=== PATIENT | female | born 1935 | race Caucasian/White ===

== ENCOUNTER 2017-10-10 09:21 | Outpatient (CLI) | payer MEDICARE ==
--- NOTE | 2017-10-10 11:51 | MRI ---
MRI LUMBAR SPINE WITHOUT CONTRAST: HISTORY: Spinal stenosis of the lumbar region. COMPARISON: 06/01/2011 TECHNIQUE: Multiplanar, multisequence MR images were obtained of the lumbar spine without contrast. FINDINGS: There is stable grade 1 anterolisthesis of L4 on L5. The vertebral bodies demonstrate normal height without fracture or subluxation. The conus medullaris terminates normally at T12. There appears to be a small cyst in the left kidney. The other prevertebral and paraspinal soft tissues are unremarka ble. T12-L1: Unremarkable. L1-L2: Unremarkable. L2-L3: Unremarkable. L3-L4: A small generalized concentric disk bulge is seen. Mild bilateral posterior facet arthrosis. Mild central canal stenosis. Mild bilateral neural foraminal stenosis. L4-L5: A moderate generalized concentric disk bulge is seen. Moderate bilateral posterior facet art hrosis. Mild central canal stenosis. Moderate bilateral neural foraminal stenosis. L5-S1: A small disk osteophyte complex is seen. No posterior facet arthrosis. No central canal dallin nosis. Moderate left neural foraminal stenosis. No right neural foraminal stenosis. IMPRESSION: Degenerative changes of the lumbar spine, as above. POS: [facility]
== END 2017-10-10 09:22 | disposition home or self-care (01) ==
LOC: SCSMRI 09:21
PROVIDERS: ATTEND Anesthesiology Pain Medicine
DX: M48.061 Spinal stenosis, lumbar region without neurogenic claudication (principal); M47.896 Other spondylosis, lumbar region
CPT/HCPCS: 72148

== ENCOUNTER → 2023-06-09 | Day surgery (SDC) | payer MEDICARE ==
[~2023-06-09] MED LIST: ROMOSOZUMAB-AQQG 210 MG/2.34 ML SYR SQ SCH
[2023-06-09 11:21] VITALS: BP 152/65; TEMP 98.8
== END ==
LOC: ONC/OP 10:52
PROVIDERS: ATTEND Internal Medicine
DX: M80.00XA Age-related osteoporosis with current pathological fracture, unspecified site, initial encounter for fracture (principal)
CPT/HCPCS: 96372; J3111

== ENCOUNTER 2023-07-07 10:50 | Day surgery (SDC) | payer MEDICARE ==
[2023-07-07 12:12] VITALS: BP 108/52; TEMP 98.4
== END 2023-07-07 12:00 | disposition home or self-care (01) ==
LOC: ONC/OP 10:50
PROVIDERS: ATTEND Internal Medicine
DX: M81.0 Age-related osteoporosis without current pathological fracture (principal)
CPT/HCPCS: 96372; J3111

== ENCOUNTER 2023-08-04 11:20 | Day surgery (SDC) | payer MEDICARE ==
[2023-08-04 11:33] VITALS: BP 124/60; TEMP 97.9
== END 2023-08-04 11:40 | disposition home or self-care (01) ==
LOC: ONC/OP 11:20
PROVIDERS: ATTEND Internal Medicine
DX: M81.0 Age-related osteoporosis without current pathological fracture (principal)
CPT/HCPCS: 96372; J3111

== ENCOUNTER 2023-09-01 09:58 | Day surgery (SDC) | payer MEDICARE ==
[2023-09-01 10:19] VITALS: BP 145/63; TEMP 97.6
[2023-09-01] MEDS ORDERED: ROMOSOZUMAB-AQQG 210 MG/2.34 ML SYR SQ SCH (11:00)
== END 2023-09-01 10:34 | disposition home or self-care (01) ==
LOC: ONC/OP 09:58
PROVIDERS: ATTEND Internal Medicine
DX: M81.0 Age-related osteoporosis without current pathological fracture (principal)
CPT/HCPCS: 96372; J3111

== ENCOUNTER 2023-09-29 10:08 | Day surgery (SDC) | payer MEDICARE ==
[2023-09-29] MEDS: ROMOSOZUMAB-AQQG 210 MG/2.34 ML SYR SQ SCH (10:42)
[2023-09-29 11:17] VITALS: BP 143/66; TEMP 98.3
== END 2023-09-29 11:19 | disposition home or self-care (01) ==
LOC: ONC/OP 10:08
PROVIDERS: ATTEND Internal Medicine
DX: M81.0 Age-related osteoporosis without current pathological fracture (principal); Z88.8 Allergy status to other drugs, medicaments and biological substances
CPT/HCPCS: 96372; J3111

== ENCOUNTER 2024-01-22 09:59 | Day surgery (SDC) | payer MEDICARE ==
[2024-01-22] MEDS: ROMOSOZUMAB-AQQG 210 MG/2.34 ML SYR SQ SCH (10:15)
[2024-01-22 11:44] VITALS: BP 142/62; TEMP 98.1
== END 2024-01-22 10:46 | disposition home or self-care (01) ==
LOC: ONC/OP 09:59
PROVIDERS: ATTEND Internal Medicine
DX: M80.00XA Age-related osteoporosis with current pathological fracture, unspecified site, initial encounter for fracture (principal); Z88.8 Allergy status to other drugs, medicaments and biological substances
CPT/HCPCS: 96372; J3111

== ENCOUNTER 2024-02-19 10:07 | Day surgery (SDC) | payer MEDICARE ==
[2024-02-19] MEDS: ROMOSOZUMAB-AQQG 105 MG/1.17 ML SYR SQ SCH (10:28)
[2024-02-19 11:01] VITALS: BP 118/71; TEMP 98.2
== END 2024-02-19 11:01 | disposition home or self-care (01) ==
LOC: ONC/OP 10:07
PROVIDERS: ATTEND Internal Medicine
DX: M80.00XA Age-related osteoporosis with current pathological fracture, unspecified site, initial encounter for fracture (principal); Z88.8 Allergy status to other drugs, medicaments and biological substances
CPT/HCPCS: 96401; J3111